=== PATIENT | male | born 1970 | race Caucasian/White ===

== ENCOUNTER 2017-11-20 21:28 | Emergency (ER) | payer BC ==
[2017-11-20] MEDS ORDERED: Enoxaparin 150 MG/1 ML Syringe ONE (22:00)
--- NOTE | 2017-11-20 22:13 | EDM.PDOC ---
ED HPI GENERAL MEDICAL PROBLEM - General Stated Complaint: possible DVT Time Seen by Provider: 11/20/17 21:50 Source of Information: Reports: Patient History Limitations: Reports: No Limitations - History of Present Illness INITIAL COMMENTS - FREE TEXT/NARRATIVE: pt claims that he was lifting things and climbing up and down the basement in the evening today. he sat down on his recliner and started to have back pain and soon his left leg swelling up and he claims he started having pain behind his left knee. pt got concerned as he has had 2 episodes of DVT in both legs and also one episode of pulmonary embolism. in the past. Presently he is not on any blood thinners. He claims his blood sugar was in 400s and he drank lots of fluids and now his blood sugars is down in 200s. his blood sugar checked in emergency room is 215mg. Onset: Today Onset Date: 11/20/17 Onset Time: 18:00 Location: Reports: Lower Extremity, Right Quality: Reports: Ache Severity: Mild Associated Symptoms: Denies: Confusion, Chest Pain, Cough, Fever/Chills, Headaches, Nausea/Vomiting, Rash, Seizure, Shortness of Breath, Syncope, Weakness - Related Data Allergies Allergy/AdvReac Type Severity Reaction Status Date / Time No Known Allergies Allergy Verified 11/20/17 21:40 ED ROS GENERAL - Review of Systems Review Of Systems: See Below Constitutional: Denies: Fever, Chills HEENT: Denies: Rhinitis, Sinus Problem, Throat Pain Respiratory: Denies: Wheezing, Pleuritic Chest Pain, Cough, Sputum Cardiovascular: Denies: Chest Pain, Lightheadedness GI/Abdominal: Denies: Abdominal Pain, Anorexia, Nausea, Vomiting : Denies: Flank Pain, Frequency Musculoskeletal: Reports: Leg Pain (left). Denies: Joint Pain, Joint Swelling Skin: Denies: Pruritis, Rash Neurological: Denies: Confusion, Dizziness ED EXAM, GENERAL - Physical Exam Exam: See Below Exam Limited By: No Limitations General Appearance: Alert, WD/WN, No Apparent Distress Eye Exam: Bilateral Eye: EOMI, PERRL Ears: Normal External Exam, Normal Canal, Hearing Grossly Normal, Normal TMs Ear Exam: Bilateral Ear: Auricle Normal, Canal Normal, TM normal Nose: Normal Inspection, Normal Mucosa, No Blood Throat/Mouth: Normal Inspection, Normal Lips, Normal Teeth, Normal Gums, Normal Oropharynx, Normal Voice, No Airway Compromise Head: Atraumatic, Normocephalic Neck: Normal Inspection, Supple, Non-Tender, Full Range of Motion Respiratory/Chest: No Respiratory Distress, Lungs Clear, Normal Breath Sounds, No Accessory Muscle Use, Chest Non-Tender Cardiovascular: Normal Peripheral Pulses, Regular Rate, Rhythm, No Edema, No Gallop, No JVD, No Murmur, No Rub Back Exam: Normal Inspection, Full Range of Motion, NT Extremities: No Pedal Edema, Normal Capillary Refill, Other (Left lower extremity: There is mild swelling of the leg as compared to the right leg. Also on range of motion flexion of the knee is limited. 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 He was walking up and down stairs all evening and sat down when he got his pain. most of the pain is in the popliteal fossa. he might have inflamed galdamez's cyst or he might have developed DVT( considering his past history) Will get D-dimer done and will get CBC to make sure he does not have onset of infection. Pt's CBC is normal. His Blood sugar was 215. His D-dimer is 3080. Apparently at this time there is no Ultrasound available to confirm the diagnosis of DVT. Hence I have started patient on Lovenox. Pt claims that he has had extensive workup for DVT by his excel developer in [facility] and he does not have any abnormalities causing it. Today his D-Dimer is elevated,will start anti- coagulation with lovenox. get his left lower extremity Doppler scheduled at [facility] in [place]. If his Doppler is positive for DVT might need to start on Coumadin. I have [facility]. - Orders/Labs/Meds Orders: Active Orders 24 hr Category Date Time Status D-DIMER QUANTITATIVE [COAG] Stat Lab 11/20/17 21:55 Received Labs: Laboratory Tests 11/20/17 11/20/17 Range/Units 21:55 22:02 WBC 10.1 (4.0-11.0) K/uL RBC 5.27 (4.50-6.50) M/uL Hgb 16.0 (13.0-18.0) g/dL Hct 44.8 (40.0-54.0) % MCV 85 (76-96) fL MCH 30.4 (27.0-32.0) pg MCHC 35.7 H (31.0-35.0) g/dL RDW 12.3 (11.0-16.0) % Plt Count 193 (150-400) K/uL MPV 10.0 (6.0-10.0) fL Neut % (Auto) 60.9 (45.0-70.0) % Lymph % (Auto) 25.0 (20.0-40.0) % Bartholomew % (Auto) 12.1 H (3.0-10.0) % Eos % (Auto) 1.8 (1.0-5.0) % Baso % (Auto) 0.2 (0.0-0.5) % Neut # (Auto) 6.17 (2.00-7.50) K/uL Lymph # (Auto) 2.53 (1.50-4.00) K/uL Bartholomew # (Auto) 1.22 H (0.20-0.80) K/uL Eos # (Auto) 0.18 (0.04-0.40) K/uL Baso # (Auto) 0.02 (0.02-0.10) K/uL POC Glucose 215 H (74-110) mg/dL Departure - Departure Time of Disposition: 22:45 Disposition: Home, Self-Care 01 Condition: Fair Clinical Impression: Positive D dimer, Left leg swelling - Discharge Information Referrals: PCP,None [Primary Care Provider] - Additional Instructions: Pt has history of multiple DVT and one episode of pulmonary embolism. He was walking up and down stairs all evening and sat down when he got his pain. most of the pain is in the popliteal fossa. he might have inflamed galdamez's cyst or he might have developed DVT( considering his past history) Will get D-dimer done and will get CBC to make sure he does not have onset of infection. Pt's CBC is normal. His Blood sugar was 215. His D-dimer is 3080. Apparently at this time there is no Ultrasound available to confirm the diagnosis of DVT. Hence I have started patient on Lovenox. Pt claims that he has had extensive workup for DVT by his excel developer in [facility] and he does not have any abnormalities causing it. Today his D-Dimer is elevated,will start anti- coagulation with lovenox. get his left lower extremity Doppler scheduled at [facility] in [place]. If his Doppler is positive for DVT might need to start on Coumadin. I have advised patient [facility]ound tomorrow. - Problem List & Annotations (1) Left leg swelling SNOMED Code(s): 930107199 Code(s): M79.89 - OTHER SPECIFIED SOFT TISSUE DISORDERS Status: Acute Current Visit: Yes (2) Positive D dimer SNOMED Code(s): 653539962 Code(s): R79.89 - OTHER SPECIFIED ABNORMAL FINDINGS OF BLOOD CHEMISTRY Status: Acute Current Visit: Yes - Problem List Review Problem List Initiated/Reviewed/Updated: Yes - My Orders Last 24 Hours: My Active Orders 11/20/17 21:55 D-DIMER QUANTITATIVE [COAG] Stat - Assessment/Plan Last 24 Hours: My Active Orders 11/20/17 21:55 D-DIMER QUANTITATIVE [COAG] Stat Assessment:: left lower extremity pain and swelling with positive d-dimer Plan: Pt has history of multiple DVT and one episode of pulmonary embolism. He was walking up and down stairs all evening and sat down when he got his pain. most of the pain is in the popliteal fossa. he might have inflamed galdamez's cyst or he might have developed DVT( considering his past history) Will get D-dimer done and will get CBC to make sure he does not have onset of infection. Pt's CBC is normal. His Blood sugar was 215. His D-dimer is 3080. Apparently at this time there is no Ultrasound available to confirm the diagnosis of DVT. Hence I have started patient on Lovenox. Pt claims that he has had extensive workup for DVT by his excel developer in [facility] and he does not have any abnormalities causing it. Today his D-Dimer is elevated,will start anti- coagulation with lovenox. get his left lower extremity Doppler scheduled at [facility] in [place]. If his Doppler is positive for DVT might need to start on Coumadin. I have advised patient [facility]trasound tomorrow.
[2017-11-20] MEDS ORDERED: Enoxaparin 100 MG/1 ML Syringe ONE (22:33)
[2017-11-20] MEDS ORDERED: Enoxaparin 40 MG/0.4 ML Syringe ONE (22:34)
== END 2017-11-20 22:45 | disposition home or self-care (01) ==
LOC: LB.ED 21:28
DX: M79.89 Other specified soft tissue disorders (principal); R79.1 Abnormal coagulation profile; M54.9 Dorsalgia, unspecified; M25.562 Pain in left knee; Z86.718 Personal history of other venous thrombosis and embolism; Z86.711 Personal history of pulmonary embolism
CPT/HCPCS: 36415; 82962; 85025; 85379; 99283; J1650

== ENCOUNTER 2019-06-21 15:38 | Emergency (ER) | payer BC ==
[2019-06-21] MEDS ORDERED: Sodium Chloride 0.9% 50 ML SDV FLUSH ONE (17:32)
[2019-06-21] MEDS ORDERED: Iopamidol 755 Mg/ML 100 ML Bottle IV SCH (17:45)
--- NOTE | 2019-06-22 10:45 | CRLCT ---
DATE OF SERVICE: 06/21/19 CLINICAL DATA: r/o pe ENHANCED CHEST CT: Multi slice acquisition through the chest with IV contrast was performed. No evidence of PE. No pneumothorax. No pleural effusions. No evidence of aortic aneurysm or dissection. There are atelectatic changes in the dependent portion of both lungs. The lungs are otherwise clear. The heart size is normal. No significant pericardial effusion. Mild coronary artery calcifications. No hilar or mediastinal adenopathy. No other significant findings. IMPRESSION: No acute abnormalities. [id number] [facility]
--- NOTE | 2019-06-23 08:41 | ER ---
REASON FOR EMERGENCY ROOM VISIT: Right lower leg edema. HISTORY OF PRESENT ILLNESS: This 48-year-old man with type 2 diabetes, comes into the emergency room with a 2-week history of gradually increasing swelling predominantly in his right calf and to much lesser extent to his left lower extremity. He does have a history of deep vein thrombosis x3 and pulmonary embolism x2. In 2003, the patient had right knee surgery, after which he developed some pain and swelling of his right lower leg, which was subsequently diagnosed as a deep vein thrombosis. It is noteworthy that this diagnosis could not be verified with standard ultrasound, rather it was diagnosed with the use of venography; for some technical reason, they were unable to rule out a DVT at that time. He was treated with Lovenox and subsequently Coumadin for 6 months' time, at which point, this was discontinued. He did not have any further symptoms until 2008, when he developed a left lower leg deep vein thrombosis following an injury in which he stabbed his lower leg on some rebar. He subsequently developed some swelling, which was treated with an Korey wrap and that swelling worsened, at which time, a DVT was diagnosed, and he also had chest pain with shortness of breath resulting in a positive diagnosis of pulmonary embolism on CT study. He was hospitalized for one week at that time and treated with heparin and converted to Coumadin. He was maintained on anticoagulation with Coumadin for 1 year and then this was discontinued. He remained largely asymptomatic with regard to his lower extremities until 2018 when he developed left leg pain and swelling that was diagnosed with deep vein thrombosis yet again. He also developed chest pain and shortness of breath, and once again pulmonary embolism was diagnosed with CT scanning. 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 He also had what sounds like some sort of venous surgery on his upper femoral vein, although the exact type of surgery is unclear. It sounds as though the origin of his DVT was in the iliofemoral region in my discussion with him. I do not have documentation of these specific events, but he is able to recollect them in considerable detail. As to his present symptoms, he has had swelling that has been gradual onset and has been associated with aching; this is aggravated with ambulation. He has had some chronic mild lower extremity edema, but his right lower leg swelling has been significantly more pronounced. In addition to this, over the past couple of days, he has had some mild increasing dyspnea on exertion, although not associated with cough or chest pain. He saw Dr. López, his primary care provider one week ago, and an ultrasound was negative for DVT of his right leg. The swelling has continued since then, and he comes in to have this evaluated. His dyspnea on exertion has been going on for a few days now. He has not had any hemoptysis nor is it associated with pain. It should be noted that the patient has been on Eliquis and Plavix throughout this whole time ever since 2018. PAST MEDICAL HISTORY: Significant for: 1. DVT and pulmonary embolism as outlined above. 2. Psoriasis with psoriatic arthritis. 3. History of sleep apnea for which he uses a CPAP machine. 4. Depression. MEDICATIONS: Reviewed. Please see electronic medical record. It includes the followin. Armodafinil. 2. Taltz IV. 3. Rexulti. 4. Trintellix. 5. Januvia. 6. Lisinopril. 7. Clopidogrel. 8. Eliquis. 9. Metformin. 10.Glipizide. 11.Norvasc. 12.BuSpar. ALLERGIES: NONE TO MEDICATIONS. FAMILY HISTORY: His father from complications of COPD. He also had diabetes mellitus. His mother from lung cancer and also had diabetes mellitus. Both mother and father were smokers. He has 5 siblings, one of whom has diabetes and the other with hypothyroidism. He has no children. 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 He is a nonsmoker and rarely drinks alcohol. REVIEW OF SYSTEMS: All pertinent positives and negatives as outlined in the HPI. PHYSICAL EXAMINATION: GENERAL: He is alert and in no acute distress. VITAL SIGNS: He is afebrile. Heart rate 97, blood pressure 141/84, respiratory rate 20, O2 sats 96% on room air. HEENT: Head is normocephalic. Pupils equally round and reactive. No conjunctivitis or scleral icterus is noted. Oropharynx is normal. NECK: Supple. No JVD. No bruits. CHEST: Clear to auscultation with good air exchange bilaterally and no rhonchi, rales, or wheezes. CARDIAC: Regular rate without murmur. There is no rub. ABDOMEN: Obese, soft, and nontender. EXTREMITIES: He does have noticeable calf edema, noticeable right lower leg edema below the knee, more so on the right than on the left. He does have some pitting edema on the left, but is significantly more on the right side. He has some mild tenderness to compression of his right calf. His tibialis posterior pulses are palpable. His feet are pink and warm. There is no cyanosis. There is no tenderness or palpable abnormality in either iliofemoral region. LABORATORY DATA: His CBC is normal with WBC of 10,500. His hemoglobin is 14.8. His platelet count is 221,000. PT is 9.9 with an INR of 1.01 and PTT is 22.6. His D-dimer is normal at 120. His BMP shows that his electrolytes are normal. His creatinine is 1.23. His estimated GFR is greater than 60. His glucose is 142. FURTHER EMERGENCY ROOM COURSE: Because he has some respiratory symptoms, we went ahead and obtained CT angiogram of his chest to rule out pulmonary embolism and no abnormalities were found. There was no acute intrathoracic process noted. IMPRESSION: Right calf edema and history of deep vein thrombosis and pulmonary embolism as described above. Given his normal venous study from a few days ago, combined with his negative CT angiogram of his chest and his normal D-dimer, I think the possibility that this is a deep vein thrombosis issue is fairly low. PLAN: I did speak with the assistant auditor fractionating still operator at [facility] in [place], Dr. Ortega, and outlined the patient's past medical history and findings to him. It was his opinion that the only thing to add would be MRV to image his pelvic veins and that would be probably better than venography. I spoke with Dr. Ortega because the Cardiology at [place] had seen him for this when he was hospitalized there in 2018, and they were involved in his thrombolytic therapy, as well as the inferior vena cava filter. We did discuss the possible need for IVC filter; however, at this juncture, we do not have a diagnosis of DVT at this time. I emphasized to the patient that it is important to be seen in the clinic on Sunday, whereupon further discussion can be undertaken regarding arranging for him to be seen somewhere to undergo magnetic resonance venography. This could presumably be done in [place] or [place]. The patient felt reassured and comfortable with this. He thought that this was a sensible approach and understands that, at this point, we do not have a diagnosis of a DVT or pulmonary embolism. He was instructed to continue on his Eliquis and Plavix and certainly, should he have worsening of any symptoms, particularly respiratory, he should give us a call or return for another evaluation. All questions were answered. JACKIE /[id number]
== END 2019-06-21 20:28 | disposition home or self-care (01) ==
LOC: LB.ED 15:38
DX: R60.0 Localized edema (principal); Z86.718 Personal history of other venous thrombosis and embolism; E11.9 Type 2 diabetes mellitus without complications
CPT/HCPCS: 36415; 71260; 80048; 85025; 85379; 85610; 85730; 99283; Q9967

== ENCOUNTER → 2019-07-08 | Outpatient (CLI) | payer BC ==
--- NOTE | 2019-07-15 10:58 | US ---
Date of Service: 07/08/19 Clinical Data: Dysphagia, unspecified,Cervicalgia THYROID ULTRASOUND: No priors. Real-time examination of the thyroid was performed. The right lobe measures 4.6 x 1.6 x 1.9 cm. The left lobe measures 4.3 x 1.5 x 1.7 cm. The isthmus measures 4 mm. Both lobes of the thyroid have mildly heterogeneous echotexture There is a 1.3 cm rounded, hypoechoic lesion located in the mid pole of the right lobe of the thyroid posteriorly. Its margins are mildly ill-defined. No echogenic foci or calcifications within it. No other thyroid lesions. The area of the patient's palpable mass was also examined. The palpable abnormality does correlated to the right submandibular gland. It does appear mildly prominent when compared to the left. It does have heterogeneous echotexture and there is a questionable mass within it. I do not see any other significant findings. IMPRESSION: 1. Right thyroid lesion. It is moderately suspicious and a 6-month followup ultrasound is recommended. 2. Questionable mass right submandibular gland. Enhanced neck CT is recommended to further evaluate this. [id number] [facility]
== END ==
LOC: LB.US 09:22
PROVIDERS: ATTEND Family Medicine
DX: R13.10 Dysphagia, unspecified (principal); M54.2 Cervicalgia; E07.89 Other specified disorders of thyroid
CPT/HCPCS: 76536

== ENCOUNTER 2019-09-05 08:29 | Day surgery (SDC) | payer BC ==
[~2019-09-05 08:29] MED LIST: Metoclopramide 10 MG/2 ML SDV IV PRN; Sodium Chloride 0.9% 1,000 ML IV SCH
[2019-09-05] MEDS: Sodium Chloride 0.9% 1,000 ML IV SCH (09:06)
[2019-09-05] MEDS ORDERED: Propofol 200 MG/20 ML SDV ONE (10:00)
--- NOTE | 2019-09-05 15:05 | OR ---
DATE OF OPERATION: 09/05/2019 SURGEON: Estrada Longoria MD PREOPERATIVE DIAGNOSIS: Screening colonoscopy. POSTOPERATIVE DIAGNOSIS: Screening colonoscopy. PROCEDURE: Colonoscopy. ANESTHESIA: MAC. ESTIMATED BLOOD LOSS: None. COMPLICATIONS: None. INDICATION FOR THE PROCEDURE: The patient is a 49-year-old male who is here today for screening colonoscopy, has had previous colonoscopy approximately 10 years ago following treatment for hemorrhoids and a fissure normal at that time per the patient. Denies any change in bowel habits since that time. DESCRIPTION OF PROCEDURE: Informed consent was obtained from the patient. The patient was taken to the operating room and placed on the table in left lateral decubitus position. Monitored anesthesia care was administered. Digital rectal exam was performed and it was normal. Colonoscope was then advanced through the anus, directed toward the cecum. Cecum was reached and identified by appendiceal orifice and ileocecal valve. Colonoscope was then slowly withdrawn. No masses. No polyps. No areas of ischemia or inflammation. No AV malformations or diverticula noted. Retroflexion was then performed in the rectum which was otherwise unremarkable. Colonoscope was then withdrawn. FINDINGS: Normal colonoscopy. RECOMMENDATIONS: We would recommend repeat screening colonoscopy in 10 years. NATALIIA/KETAN /[id number]
== END 2019-09-05 11:29 | disposition home or self-care (01) ==
LOC: LB.SDS 08:29
PROVIDERS: ATTEND Surgery
DX: Z12.11 Encounter for screening for malignant neoplasm of colon (principal)
CPT/HCPCS: 45378; 82962; J2704; J7030; G0121

== ENCOUNTER 2020-10-16 14:18 | Emergency (ER) | payer BC ==
[2020-10-16] MEDS: Acetaminophen/HYDROcodone 325-5 MG Tab PO ONE ×2 (14:41→14:45)
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
[2020-10-16] MEDS ORDERED: Acetaminophen/HYDROcodone 325-5 MG Tab ONE (15:00)
--- NOTE | 2020-10-18 08:28 | CR ---
DATE OF SERVICE: 10/16/20 CLINICAL DATA: ankle injury RIGHT ANKLE: There is a fracture subluxation of the ankle joint. There is a displaced oblique fracture through the distal fibular metaphysis with posterior displacement and angulation of the distal fragment with respect to the proximal. There is a vertical fracture through the posterior malleolus of the distal tibia. The talus is subluxed laterally and there is widening of the tibiotalar joint medially. No other acute abnormalities. [id number] [facility]
== END 2020-10-16 15:50 | disposition home or self-care (01) ==
LOC: LB.ED 14:18
DX: S82.831A Other fracture of upper and lower end of right fibula, initial encounter for closed fracture (principal); S82.61XA Displaced fracture of lateral malleolus of right fibula, initial encounter for closed fracture; I10 Essential (primary) hypertension; E11.9 Type 2 diabetes mellitus without complications; Z86.718 Personal history of other venous thrombosis and embolism; Z86.711 Personal history of pulmonary embolism; Z79.01 Long term (current) use of anticoagulants; Z79.02 Long term (current) use of antithrombotics/antiplatelets; Z79.84 Long term (current) use of oral hypoglycemic drugs; Z79.899 Other long term (current) drug therapy; V86.52XA Driver of snowmobile injured in nontraffic accident, initial encounter
CPT/HCPCS: 29515; 73610; 99283; A9270

== ENCOUNTER 2020-10-27 08:35 | Emergency (ER) | payer BC ==
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
--- NOTE | 2020-10-27 11:05 | CR ---
DATE OF SERVICE: 10/27/2020 CLINICAL DATA: Fracture Right ankle: Comparison is made to a prior exam dated 16 October 2020. The displaced fracture through the distal fibula is again seen. There does appear to be increased displacement of the distal fragment posteriorly with respect to the proximal fragment on the lateral view. There is progressive subluxation of the talus laterally with respect to the distal tibia with increased widening of the ankle mortise joint medially. There is a mildly displaced vertical fracture through the posterior malleolus of the distal tibia, unchanged from the prior study. [facility]
== END 2020-10-27 10:40 | disposition home or self-care (01) ==
LOC: LB.ED 08:35
DX: S82.831K Other fracture of upper and lower end of right fibula, subsequent encounter for closed fracture with nonunion (principal); S82.891A Other fracture of right lower leg, initial encounter for closed fracture; I10 Essential (primary) hypertension; E11.9 Type 2 diabetes mellitus without complications; Z79.84 Long term (current) use of oral hypoglycemic drugs; Z79.899 Other long term (current) drug therapy; Z86.711 Personal history of pulmonary embolism; Z79.01 Long term (current) use of anticoagulants; Z79.02 Long term (current) use of antithrombotics/antiplatelets; Z86.718 Personal history of other venous thrombosis and embolism; X58.XXXD Exposure to other specified factors, subsequent encounter
CPT/HCPCS: 73610-RT; 99283

== ENCOUNTER 2023-06-28 07:27 | Emergency (ER) | payer BC | END 2023-06-28 08:20 | disposition home or self-care (01) | LOC: LB.ED 07:27 | DX: J02.9 Acute pharyngitis, unspecified (principal); E11.9 Type 2 diabetes mellitus without complications; I10 Essential (primary) hypertension; Z79.82 Long term (current) use of aspirin; Z79.84 Long term (current) use of oral hypoglycemic drugs; Z79.01 Long term (current) use of anticoagulants; Z79.899 Other long term (current) drug therapy; Z79.02 Long term (current) use of antithrombotics/antiplatelets | CPT/HCPCS: 99282; 99283 ==

== ENCOUNTER 2023-08-21 09:54 | Emergency (ER) | payer BC ==
[2023-08-21] MEDS ORDERED: Ketorolac 60 MG/2 ML SDV IM ONE (10:58)
[2023-08-21] MEDS ORDERED: cefTRIAXone 1 GM Vial IM ONE (10:58)
== END 2023-08-21 11:20 | disposition home or self-care (01) ==
LOC: LB.ED 09:54
DX: K08.89 Other specified disorders of teeth and supporting structures (principal); I10 Essential (primary) hypertension; E11.40 Type 2 diabetes mellitus with diabetic neuropathy, unspecified; Z79.899 Other long term (current) drug therapy; Z79.84 Long term (current) use of oral hypoglycemic drugs; Z79.01 Long term (current) use of anticoagulants
CPT/HCPCS: 96372; 99282; J0696; J1885

== ENCOUNTER 2023-09-23 17:45 | Emergency (ER) | payer BC ==
[2023-09-23] MEDS ORDERED: Erythromycin Base 0.5% Ophth Oint 3.5 GM Tube EYEBOTH ONE (18:12)
[2023-09-23] MEDS ORDERED: Tetracaine HCl/PF 0.5% 4 ML Bottle EYELF ONE (18:23)
[2023-09-23] MEDS ORDERED: Fluorescein 1 MG Ophth Strip EYELF ONE (18:24)
[2023-09-23 18:47] VITALS: BP 143/67; PULSE 87
== END 2023-09-23 18:21 | disposition home or self-care (01) ==
LOC: LB.ED 17:45
DX: S05.02XA Injury of conjunctiva and corneal abrasion without foreign body, left eye, initial encounter (principal); I10 Essential (primary) hypertension; E11.9 Type 2 diabetes mellitus without complications; Z79.01 Long term (current) use of anticoagulants; Z79.899 Other long term (current) drug therapy; Z79.84 Long term (current) use of oral hypoglycemic drugs; W45.8XXA Other foreign body or object entering through skin, initial encounter
CPT/HCPCS: 99283

== ENCOUNTER 2024-12-17 19:55 | Emergency (ER) | payer BC ==
[2024-12-17] MEDS: Lidocaine 1% with EPINEPHrine 1:100,000 20 ML MDV INJECT ONE (20:28)
== END 2024-12-17 20:50 | disposition home or self-care (01) ==
LOC: LB.ED 19:55
DX: S61.012A Laceration without foreign body of left thumb without damage to nail, initial encounter (principal); I10 Essential (primary) hypertension; E11.9 Type 2 diabetes mellitus without complications; Z79.01 Long term (current) use of anticoagulants; Z79.899 Other long term (current) drug therapy; Z79.82 Long term (current) use of aspirin; W22.8XXA Striking against or struck by other objects, initial encounter; Y93.89 Activity, other specified
CPT/HCPCS: 12001; 99282; 99283; J2004